=== PATIENT | male | born 1990 | race Caucasian/White ===

== ENCOUNTER 2020-09-21 16:58 | Outpatient (CLI) | payer OTHER | END 2020-09-21 16:59 | disposition home or self-care (01) | LOC: COV 16:58 | PROVIDERS: ATTEND Family Medicine | DX: R50.9 Fever, unspecified (principal); R05 Cough; R06.02 Shortness of breath; Z20.828 Contact with and (suspected) exposure to other viral communicable diseases ==

== ENCOUNTER 2020-09-25 10:30 | Outpatient (CLI) | payer OTHER | END 2020-09-25 23:59 | disposition home or self-care (01) | LOC: LAB.R 10:30 → LAB.N 23:59 | PROVIDERS: ATTEND Family Medicine | DX: R05 Cough (principal); Z20.828 Contact with and (suspected) exposure to other viral communicable diseases ==

== ENCOUNTER 2020-09-25 11:12 | Outpatient (CLI) | payer OTHER ==
--- NOTE | 2020-09-25 13:44 | XRAY Report ---
PROCEDURE: Chest 2 View X-Ray INDICATIONS: COUGH TECHNIQUE: 2 view(s) of the chest. COMPARISON: None. FINDINGS: Surgical changes and devices: None. Lungs and pleura: No pleural effusions or pneumothorax. Lungs are clear. Mediastinum: Mediastinal contours are normal. Heart size is normal. Bones and chest wall: No suspicious bony abnormalities. Soft tissues appear unremarkable. IMPRESSION: Source of cough is not seen. Reviewed by: Al Brown MD on 09/25/2020 1:43 PM [facility] Approved by: Al Brown MD on 09/25/2020 1:43 PM [facility] Station ID: [id number]
== END 2020-09-25 23:59 | disposition home or self-care (01) ==
LOC: DI.N 11:12
PROVIDERS: ATTEND Family Medicine
DX: R05 Cough (principal)